=== PATIENT | male | born 1960 | race Caucasian/White ===

== ENCOUNTER 2018-02-28 09:41 | Emergency (ER) | payer SELFPAY ==
[~2018-02-28] VITALS: Ht 170.2 cm; Wt 70.5 kg
[2018-02-28 09:44] VITALS: BP 131/72; PULSE 63; RESP 16; TEMP 97.5; O2SAT 98
[2018-02-28] MEDS ORDERED: METO50TA PO (09:53)
[2018-02-28] MEDS ORDERED: CLIN300C5 PO (10:03)
[2018-02-28] MEDS ORDERED: TRAM50 PO (10:03)
--- NOTE | 2018-02-28 10:04 | PD ---
HPI Chief Complaint: Oral / Dental Pain or Problem Time Seen by Provider: 09:50 Travel History International Travel<30 days: No Contact w/Intl Traveler<30days: No Traveled to known affect area: No History of Present Illness HPI 57-year-old male with right lower dental pain and facial swelling since this morning. He has a decayed and fractured tooth at the site of the pain. He denies fever chills. Reports pain is constant, throbbing, nonradiating. Aggravated by hot and cold liquids. No alleviating factors. Symptom severity is moderate. PFSH Past Medical History Medical History: Denies Significant Hx Diminished Hearing: No Hypertension: Yes Tetanus Vaccination: Unknown Past Surgical History Surgical History: No Previous Surgery Social History Alcohol Use: No Tobacco Use: Yes (1/2 PPD) Substance Use: No Allergies-Medications (Allergen,Severity, Reaction): Coded Allergies: No Known Allergies (Unverified , 02/28/18) Reported Meds & Prescriptions Reported Meds & Active Scripts Active Reported Metoprolol Tartrate 50 Mg Tab 50 Mg PO DAILY Review of Systems Except as stated in HPI: all other systems reviewed are Neg General / Constitutional: No: Fever Eyes: No: Visual changes HENT: Positive: Dental Difficulties Cardiovascular: No: Chest Pain or Discomfort Respiratory: No: Shortness of Breath Gastrointestinal: No: Abdominal Pain Genitourinary: No: Dysuria Musculoskeletal: No: Pain Physical Exam Narrative GENERAL: Alert and well-appearing 57-year-old male SKIN: Warm and dry. HEAD: Normocephalic. Right lower facial swelling EYES: No injection or drainage. MOUTH: Decayed and fractured tooth #30 with surrounding gum swelling and erythema. No swelling to the floor the mouth. Uvula is midline. Airways patent. NECK: Supple, trachea midline. No lymphadenopathy. MUSCULOSKELETAL: No cyanosis, or edema. Data Data Last Documented VS Vital Signs Date Time Temp Pulse Resp B/P (MAP) Pulse Ox O2 Delivery O2 Flow Rate FiO2 02/28/18 09:44 97.5 63 16 131/72 (91) 98 MDM Medical Decision Making Medical Screen Exam Complete: Yes Emergency Medical Condition: Yes Differential Diagnosis Dental abscess, dental fracture, dental caries Narrative Course 57-year-old male here with a dental abscess. He is nontoxic appearing. Diagnosis Primary Impression: Dental abscess Referrals: Dentist Additional Instructions: Antibiotics as directed. Ibuprofen 800 mg every 6 hours for pain Pain medication as directed. Follow-up with her dentist. Scripts Tramadol (Ultram) 50 Mg Tab 50 MG PO Q6H Y for PAIN, #10 TAB 0 Refills Prov: Eva Burns 02/28/18 Clindamycin (Clindamycin) 300 Mg Cap 300 MG PO Q6H for Infection for 10 Days, #40 CAP 0 Refills Prov: Eva Burns 02/28/18 Disposition: 01 DISCHARGE HOME Condition: Stable Eva Burns February 28, 2018 10:04
== END 2018-02-28 10:10 | disposition home or self-care (01) ==
LOC: PHEFT 09:41 → EDBD 09:41 → PHEFT 10:10
DX: K04.7 Periapical abscess without sinus (principal); I10 Essential (primary) hypertension; F17.200 Nicotine dependence, unspecified, uncomplicated
CPT/HCPCS: 99283